=== PATIENT | male | born 1955 | race Caucasian/White ===

== ENCOUNTER 2020-04-09 12:20 | Outpatient (CLI) | payer MEDICARE, SELFPAY ==
--- NOTE | ~2020-04-09 | XR_ITS ---
XR shoulder LT min 2V DATE: 04/09/2020 12:49 INDICATION: Fall downstairs this morning. Unable to raise arm. TECHNIQUE: 4 views COMPARISON: 08/25/2004 left shoulder FINDINGS: There is prominent smooth chronic calcification at the region of the left rotator cuff sugg esting chronic calcific tendinitis. There is osteoarthritic spurring at the glenohumeral joint. No fracture, dislocation, periosteal reaction or bone destruction of the left shoulder is evident. IMPRESSION: No fracture or dislocation of left shoulder Prominent chronic calcification at the rotator cuff Reviewed, dictated and finalized at location A.
== END 2020-04-09 12:21 | disposition home or self-care (01) ==
PROVIDERS: PCP Family Medicine; Visit Provider Family Medicine
DX: M25.512 Pain in left shoulder (principal)
CPT/HCPCS: 73030

== ENCOUNTER → 2021-01-31 12:06 | Outpatient (CLI) | payer MEDICARE, SELFPAY ==
--- NOTE | ~2021-01-31 | XR_ITS ---
EXAMINATION: XR knee LT min 4V DATE: 01/31/2021 12:41 INDICATION: Left knee pain. TECHNIQUE: 4 views of left knee were obtained. COMPARISON: None. FINDINGS: There is varus angulation at the knee. No fracture. There is moderate osteoarthritis of med ial compartment and mild osteoarthritis of lateral and patellofemoral compartments. No knee joint eff usion. IMPRESSION: 1. Moderate left knee osteoarthritis. Reviewed, dictated and finalized at location A.
--- NOTE | ~2021-01-31 | XR_ITS ---
EXAMINATION: XR knee RT min 4V DATE: 01/31/2021 12:41 INDICATION: Right knee pain. TECHNIQUE: 4 views of right knee were obtained. COMPARISON: None. FINDINGS: There is varus angulation at the knee. No fracture. There is moderate osteoarthritis of med ial and patellofemoral compartments and mild osteoarthritis of lateral compartment. No knee joint eff usion. IMPRESSION: 1. Moderate right knee osteoarthritis. Reviewed, dictated and finalized at location A.
== END ==
PROVIDERS: Visit Provider Family Medicine
DX: M17.0 Bilateral primary osteoarthritis of knee (principal)
CPT/HCPCS: 73564

== ENCOUNTER → 2021-06-02 11:54 | Outpatient (CLI) | payer MEDICARE, SELFPAY ==
--- NOTE | ~2021-06-02 | CT_ITS ---
EXAMINATION: CT sinus wo con DATE: 06/02/2021 12:11 INDICATION: Chronic recurrent sinusitis TECHNIQUE: Computed tomography (CT) of the paranasal sinuses was performed without contrast. Iterativ e reconstruction technique was employed. Exam dose: 303.01 mGy-cm total exam DLP. COMPARISON: None FINDINGS: Right deviation of the nasal septum. The nasal turbinates are moderately prominent, relatively symmetric. There is a prominent periapical abscess at upper left molar #15 tooth, projecting into the lower left maxillary sinus. There is severe mucoperiosteal thickening nearly opacifying the left maxillary sinus. There is opacification of left maxillary ostium and left infundibulum. The right ostiomeatal unit is patent. Small mucus retention cyst or polyp of the anterior right maxillary sinus. A focal area of soft tissu e thickening is noted in each ethmoid area. Minimal development of the frontal sinuses. The sphenoid sinuses are unremarkable. Normal development and aeration of the mastoid air cells. Middle and inner ear apparatus appear shay l bilaterally. IMPRESSION: Rightward deviation of nasal septum Severe mucoperiosteal thickening nearly completely opacifying left maxillary sinus Opacification of left maxillary ostium and left infundibulum Large periapical abscess of left upper molar #15, projecting into the left maxillary sinus Minimal focal soft tissue thickening of the anterior right maxillary sinus There is a focal area of mild soft tissue thickening is identified in the ethmoid air cells Reviewed, dictated and finalized at Location A. Reviewed, dictated and finalized at location A. IMPRESSION: Rightward deviation of nasal septum Severe mucoperiosteal thickening nearly completely opacifying left maxillary si nus Opacification of left maxillary ostium and left infundibulum Large periapical abscess of left upper molar #15, projecting into the left maxi llary sinus Minimal focal soft tissue thickening of the anterior right maxillary sinus There is a focal area of mild soft tissue thickening is identified in the ethmo id air cells
== END ==
PROVIDERS: PCP Family Medicine; Visit Provider Family Medicine
DX: J32.9 Chronic sinusitis, unspecified (principal); J34.2 Deviated nasal septum; K04.7 Periapical abscess without sinus
CPT/HCPCS: 70486

== ENCOUNTER → 2022-04-04 15:19 | Outpatient (CLI) | payer MEDICARE, SELFPAY ==
--- NOTE | ~2022-04-04 | XR_ITS ---
EXAM: XR wrist LT min 3V HISTORY: Pain in left wrist . COMPARISON: Left hand 11/11/2014. FINDINGS: Normal mineralization. No fracture or dislocation. No lytic or blastic lesion. Severe narr owing sclerosis and osteophytosis at the trapeziometacarpal joint. No erosion or periosteal change. S oft tissues within normal limits. IMPRESSION: Severe left trapezium metacarpal joint osteoarthritis. Reviewed, dictated and finalized at location K.
--- NOTE | ~2022-04-04 | XR_ITS ---
EXAM: XR elbow RT min 3V HISTORY: Pain in right elbow . COMPARISON: None available. FINDINGS: Soft tissue calcification over the medial condyle, degenerative in appearance. Scattered m ild osteophytosis and enthesopathy. Subtle displacement of the anterior fat pad. IMPRESSION: Mild degenerative changes in the elbow. Possible small elbow joint effusion which may be related to degenerative changes. If there is a history of acute trauma consider occult radial head fr acture. Reviewed, dictated and finalized at location K. IMPRESSION: Mild degenerative changes in the elbow. Possible small elbow joint effusion which may be related to degenerative changes. If there is a history of acute trauma consider occult radial head fracture.
--- NOTE | ~2022-04-04 | XR_ITS ---
EXAM: [id number] HISTORY: Rib pain . COMPARISON: None available. FINDINGS: Moderate degenerative change in the right shoulder. Lumbar scoliosis no fracture. Aortic e ctasia. Visualized lung parenchyma is clear. IMPRESSION: No acute osseous abnormality detected in the right ribs. Reviewed, dictated and finalized at location K.
== END ==
PROVIDERS: PCP Family Medicine; Visit Provider Physician Assistant
DX: R07.81 Pleurodynia (principal); M19.032 Primary osteoarthritis, left wrist; M19.021 Primary osteoarthritis, right elbow
CPT/HCPCS: 71101; 73080; 73110

== ENCOUNTER 2022-06-29 10:43 | Outpatient (CLI) | payer MEDICARE, SELFPAY ==
--- NOTE | 2022-06-29 10:54 | ECG_ITS ---
Measurements Intervals [place] Rate: 61 P: 42 DE: 181 QRS: 14 QRSD: 99 T: 53 QT: 417 QTc: 420 Interpretive Statements SINUS RHYTHM NORMAL EKG NO PREVIOUS ECG AVAILABLE FOR COMPARISON Electronically Signed On 06-29-2022 18:30:08 CDT by Moraima Gao M.D.
== END 2022-06-29 10:44 | disposition home or self-care (01) ==
LOC: ANHSURGERY 10:47
PROVIDERS: PCP Family Medicine; Visit Provider Urology
DX: E78.00 Pure hypercholesterolemia, unspecified (principal); Z01.818 Encounter for other preprocedural examination
CPT/HCPCS: 93005

== ENCOUNTER 2022-07-04 01:35 | Day surgery (SDC) | payer MEDICARE, SELFPAY ==
[2022-06-29 09:31] VITALS: BMI 25.6
--- NOTE | 2022-06-29 09:41 | PC.NURSE ---
PRE-OP INSTRUCTIONS, PLEASE READ CAREFULLY Report to the Outpatient Waiting Room, entrance under the green pavilion located off [facility], at time _1000_ on date _07/04/22_. OR Time: _1200_. - You and your visitor will be asked a series of questions to screen for COVID 19 for your protection. - Only one visitor is allowed at this time. - The patient visitor is requested to leave or wait in car when not with patient. - A mask is required within the hospital. Patients may have clear liquids (water, carbonated beverages, clear teas, apple juice) until 3 hours prior to surgery (0900 AM) with a maximum of 20 ounces. - No food from midnight until time of surgery Take the following medications with a SIP of water the morning of surgery: _LEVOTHYROXINE__ Medications to discontinue per DR. WELSH - _PT STATES STOPPING DICLOFENAC 06/28/22_ Medications to discontinue per ANESTHESIA - ALL VITAMINS AND SUPPLEMENTS 3 DAYS PRIOR TO SURGERY, Date to take last dose 06/30/22_ Please no deodorant, or body powder the day of surgery. No jewelry (including any body piercings) or valuables the day of surgery, leave them at home. Please take a shower or bath the night before, or the morning of, surgery with an antibacterial soap. Wear comfortable, loose fitting clothing. - Jewelry must be removed prior to entering the operating room. Rings and piercings that are not removed may be cut off. - The hospital will not accept responsibility for valuables. - Please leave all valuables, including medications, at home the day of surgery. If you are going home after surgery, a licensed route driver must drive you home. - NO public transportation without another adult. - We recommend that an adult stay with you for 24 hours following discharge. - We also recommend that you do not drive, make important decision, drink alcoholic beverages, or take any drugs that were not prescribed by your health care provider for at least 24 hours after your discharge time. Follow any additional instructions given to you from your surgeon. If you or anyone in your household have experienced Covid symptoms in the past week, please notify your surgeon or the nurse liaison at the phone number below for possible testing. Telephone instructions given to ____PT and asked if any additional questions and then verbalized understanding. Patient advised to call surgeon office or pre surgery nurse liaison [phone] if any additional questions.
[2022-07-04] VITALS (8 sets, daily range): BP systolic 123–149; BP diastolic 74–94; PULSE 56–75; RESP 14–18; TEMP 36.1–36.8; O2SAT 100
--- NOTE | 2022-07-04 07:16 | P.PNAN_ITS ---
Anes - Initial Pre Proc Eval Procedure: Operation Date: 07/04/22 12:00 Proposed Procedures p Excision of Right Epididymal Cyst with Orchiopexy with Scrotal Approach - Avinash Keating MD Date/Time: 07/04/22 07:16 Surgeon: Avinash Keating MD Pre Op Diagnosis: Rt Epidiymal Patient Data Age: 67 Gender: M Height: 1.93 m Weight: 95.45 kg Allergies Allergy/AdvReac Type Severity Reaction Status Date / Time No Known Allergies Allergy Unverified 07/04/22 09:54 Home Medications Medication Instructions Recorded Confirmed Type Probiotic 1 cap QAM 06/29/22 07/04/22 History coenzyme Q10 100 mg capsule 200 mg PO QAM 06/29/22 07/04/22 History (CoQ-10) diclofenac sodium 75 mg 75 mg PO QAM 06/29/22 07/04/22 History tablet,delayed release docusate sodium 100 mg capsule 300 mg PO HS 06/29/22 07/04/22 History (Stool Softener) finasteride 5 mg tablet 5 mg QAM 06/29/22 07/04/22 History glucosamine sulfate dipotassium Cl 2 tablet PO QAM 06/29/22 07/04/22 History 500 mg-chondroitin 400 mg capsule (Glucosamine Sulfate 2 KCL-Chondroitin) krill oil 500 mg capsule 500 mg PO QAM 06/29/22 07/04/22 History levothyroxine 175 mcg tablet 175 mcg QAM 06/29/22 07/04/22 History lovastatin 20 mg tablet 20 mg QAM 06/29/22 07/04/22 History multivitamin 1 tablet PO QAM 06/29/22 07/04/22 History polyethylene glycol 3350 17 17 g PO QAM 06/29/22 07/04/22 History gram/dose oral powder (Miralax) Patient hx anesthesia problems: none Family hx anesthesia problems: none Results Review: All pre-operative results and documents have been reviewed as part of the pre- operative evaluation. [facility] Past Medical History Medical History (Updated 07/04/22 @ 07:17 by Navneet Woodward DO) Bladder cancer BPH (benign prostatic hyperplasia) Hyperlipidemia Hypothyroidism Surgical History Surgical History (Updated 07/04/22 @ 07:17 by Navneet Woodward DO) History of tonsillectomy Social History Social History Smoking status: Never smoker Second hand tobacco smoke exposure: No Alcohol intake: current Alcohol use details: STATES MAYBE 10 DRINKS/YEAR Substance use: never Substance use type: does not use Living arrangements: alone Spiritual care concerns: No Anes - Eval Final PreProcedure Day of Procedure 07/04/22 07:16 Patient weight: overweight Heart: regular rate and rhythm Lungs: clear to auscultation Airway: Mallampati scale class II Neurological: alert and oriented Last oral intake: >/= 8 hours ASA classification: II Emergent: no Anesthetic plan: proceed Anesthesia type and monitoring: general LMA and standard monitoring Results Review: All pre-operative results and documents have been reviewed as part of the pre- operative evaluation. Informed Consent: The patient's anesthetic plan and its attendant risks and benefits were discussed with the patient/family/POA. Questions were solicited and answers p rovided to the satisfaction of the patient/family/POA.
[2022-07-04] MEDS: LACTATED RINGERS 1,000 ML 30 ML IV CONT ×2 (10:06→13:39)
--- NOTE | 2022-07-04 11:38 | WPDHPUPDATE1 ---
History and Physical Update Update Date/Time: 07/04/22 11:38 History and Physical has been reviewed, including an updated exam of the patient. There are NO changes in the patient's condition. Risks, benefits, and alternatives have been discussed and questions answered. Patient agrees to proceed with procedure.
[2022-07-04] MEDS: ceFAZolin 2 GM/D5W 50 ML 2 GM/50 ML BAG IVPB (12:07)
[2022-07-04] MEDS: BUPIVACAINE HCL 0.25% PF 30 ML VIAL INFILTRATE (12:48)
--- NOTE | 2022-07-04 13:13 | W.PM.PROC2 ---
Procedure Note - Detailed Date of Procedure 07/04/22 Pre-op Diagnosis Rt Epidiymal cyst Post-op Diagnosis Same (Right hydrocele, right epididymal cyst/spermatocele) Procedure Performed Right hydrocelectomy, excision right epididymal cyst/spermatocele, right orchiopexy Surgeon Avinash Keating MD Anesthesia General Description of Procedure Patient is taken the operative suite correctly identified. Once anesthesia was obtained he was prepped and draped usual sterile fashion. A transverse incision was made the right hemiscrotum. This carried down to the tunica layers. The hydrocele and testicle was brought out to the operative field. The hydrocele was incised and drained of straw-colored fluid. The excess tissue was excised sent for analysis. Then had a spermatocele/epididymal cyst measuring approximately a 5 cm which was dissected down to its origin at the head of the epididymis. Hemostat was placed across it and it was excised and sent for review. Then ligated the opening using 3-0 Vicryl. There was good hemostasis at this time. The appendix testes was also excised and fulgurated. An orchiopexy was then performed using 3-0 Ethibond securing the testicle at 3 points. Quarter-inch Kierra drain was placed in the right hemiscrotum through a separate stab incision and secured. Tunica was closed using 3-0 chromic in a running fashion. Bupivacaine was used to anesthetize the incision. Incision was closed using 3-0 chromic in running fashion. Patient was taken recovery stable condition. Estimated Blood Loss 10 Drains Yes Packing No Pathology Yes Complications No immediate complications Condition Stable Disposition PACU
[2022-07-04] MEDS: fentaNYL CITRATE INJ (*CRX) 100 MCG/2 ML VIAL 25 MCG IV PUSH (13:46)
[2022-07-04] MEDS: oxyCODONE HCL (*CRX) 5 MG TAB IR PO (14:20)
== END 2022-07-04 15:04 | disposition home or self-care (01) ==
PROVIDERS: PCP Family Medicine; Visit Provider Urology
PROC: (CPT 55040; principal; 2022-07-04 12:00)
DX: N43.3 Hydrocele, unspecified (principal); N43.41 Spermatocele of epididymis, single; E78.5 Hyperlipidemia, unspecified; E03.9 Hypothyroidism, unspecified; N40.0 Benign prostatic hyperplasia without lower urinary tract symptoms; Z85.51 Personal history of malignant neoplasm of bladder
CPT/HCPCS: 55040; 54640; 88302; 88304; 93005; A9270; J0690; J1100; J2405; J2704; J3010; J7120

== ENCOUNTER 2022-08-02 11:27 | Emergency (ER) | payer MEDICARE, SELFPAY ==
--- NOTE | ~2022-08-02 | XR_ITS ---
EXAMINATION: XR finger 2nd LT min 2V INDICATION: Left second finger pain and laceration TECHNIQUE: Four views of the left second finger are obtained COMPARISON: 11/11/2014 FINDINGS: Bone alignment is normal. There is no fracture. There is mild osteoarthritis of the interph alangeal joints. Soft tissue swelling is noted. IMPRESSION: 1. No acute osseous abnormality. Reviewed, dictated and finalized at location B.
[2022-08-02 11:34] VITALS: BP 139/81; PULSE 70; RESP 16; TEMP 36.6; O2SAT 99
--- NOTE | 2022-08-02 11:52 | ED.GENADULT ---
HPI - General Adult General Chief complaint: Wound/Laceration Stated complaint: Cut Finger Lt Hand History of Present Illness HPI narrative: Mr. De La Cruz is a pleasant 67 y/o male. PMHx Hypothyroid, Dyslipidemia, BHP, Bladder Carcinoma. Presents to [facility] today w/acute complaints of LT finger Pointer Finger laceration. Client tells me that he was trimming tree limbs with a chain saw, RT hand dominant, lowered the chain saw and accidentally 'nipped' LT finger. -Incident had occurred immediately [employer]. -Bleeding is currently controlled. -Not on any active anticoagulants. -Non-Diabetic. -No bony pain or trauma. -Tetanus is reported as UTD 2018 according to client. He is without additional acute c/o upon PE. Related Data Home Medications Medication Instructions Recorded Confirmed coenzyme Q10 100 mg capsule 200 mg PO QA 06/29/22 08/02/22 (CoQ-10) diclofenac sodium 75 mg 75 mg PO QA 06/29/22 08/02/22 tablet,delayed release finasteride 5 mg tablet 5 mg QA 06/29/22 08/02/22 glucosamine sulfate dipotassium Cl 2 tablet PO QAM 06/29/22 08/02/22 500 mg-chondroitin 400 mg capsule (Glucosamine Sulfate 2 KCL-Chondroitin) krill oil 500 mg capsule 500 mg PO QAM 06/29/22 08/02/22 levothyroxine 175 mcg tablet 175 mcg QAM 06/29/22 08/02/22 lovastatin 20 mg tablet 20 mg QAM 06/29/22 08/02/22 multivitamin 1 tablet PO QAM 06/29/22 08/02/22 Allergies Allergy/AdvReac Type Severity Reaction Status Date / Time No Known Allergies Allergy Verified 08/02/22 11:31 Review of Systems Review of Systems: CONSTITUTIONAL: Denies fever, chills, sweats. EYES: Denies visual changes, redness, discharge. ENT: Denies rhinorrhea, congestion, sore throat, otalgia. CARDIOVASCULAR: Denies chest pain, palpitations, edema. RESPIRATORY: Denies dyspnea, wheezing, cough GASTROINTESTINAL: Denies abdominal pain, nausea, vomiting, diarrhea. GENITOURINARY: Denies dysuria, hematuria, abnormal discharge SKIN: LT pointer finger laceration. MUSCULOSKELETAL: Denies acute back pain, joint pain, or myalgia. NEUROLOGIC: Denies numbness, or focal weakness. PSYCHIATRIC: Denies anxiety or depression. [facility] Past Medical History Medical History Bladder cancer BPH (benign prostatic hyperplasia) Hyperlipidemia Hypothyroidism Surgical History Surgical History History of tonsillectomy Social History Social History Smoking status: Never smoker Second hand tobacco smoke exposure: No Alcohol intake: current Alcohol use details: STATES MAYBE 10 DRINKS/YEAR Substance use: never Substance use type: does not use Spiritual care concerns: No Exam Narrative: GENERAL: This is a well-nourished, well-developed adult, in no apparent distress. HEAD: normocephalic, atraumatic. EYES: Sclera clear/white. EARS: External ears normal. NOSE: External nose normal. THROAT: Mucous membranes moist. NECK: Neck supple, non-tender. CARDIOVASCULAR: Regular rate and rhythm. Pulses and cap refill brisk to LUE. SPO2 99 % on affected digit. RESPIRATORY: Clear to auscultation. GASTROINTESTINAL: Abdomen soft, non-tender. SKIN: With 2.5 cm linear laceration overlying proximal LT pointer. No obvious FB. Bleeding is controlled. Client exhibits full flexion and extension of digit, w/o difficulty. No bony tenderness or laxity. No open Fxs or deformity. NEURO: Alert, active, and age appropriate. Good sensation and discrimination LUE, all sites. EXTREMITIES: Mild point soft tissue tenderness and laceration LT pointer finger, See also SKIN documentation above. Remainder of musculoskeletal exam is negative. Course Course Level of Care: Express Care Visit Vital Signs Vital signs: Vital Signs Temperature 36.6 C 08/02/22 11:34 Pulse Rate 70 08/02/22 11:34 Respiratory R
== END 2022-08-02 12:35 | disposition home or self-care (01) ==
PROVIDERS: Emergency Provider Nurse Practitioner Adult Health; PCP Family Medicine
DX: S61.211A Laceration without foreign body of left index finger without damage to nail, initial encounter (principal); W29.3XXA Contact with powered garden and outdoor hand tools and machinery, initial encounter; N40.0 Benign prostatic hyperplasia without lower urinary tract symptoms; E78.5 Hyperlipidemia, unspecified; E03.9 Hypothyroidism, unspecified; Z85.51 Personal history of malignant neoplasm of bladder
CPT/HCPCS: 12001; 73140; 99213; G0463

== ENCOUNTER 2023-09-05 08:13 | Outpatient (CLI) | payer MEDICARE, SELFPAY ==
--- NOTE | 2023-09-05 08:26 | ECG_ITS ---
Measurements Intervals [place] Rate: 65 P: 37 LA: 210 QRS: -3 QRSD: 95 T: 36 QT: 408 QTc: 426 Interpretive Statements SINUS RHYTHM WITH FIRST DEGREE AV BLOCK BASELINE ARTIFACT BORDERLINE ECG COMPARED TO ECG 06/29/2022 11:03:11 FIRST DEGREE AV BLOCK NOW PRESENT Electronically Signed On 09-05-2023 18:26:21 CDT by Abhishek Fatima M.D.
== END 2023-09-05 08:14 | disposition home or self-care (01) ==
LOC: ANHSURGERY 08:18
PROVIDERS: PCP Family Medicine; Visit Provider Urology
DX: C67.9 Malignant neoplasm of bladder, unspecified (principal); E78.00 Pure hypercholesterolemia, unspecified; Z01.818 Encounter for other preprocedural examination
CPT/HCPCS: 87086; 93005

== ENCOUNTER 2023-09-11 01:17 | Day surgery (SDC) | payer MEDICARE, SELFPAY ==
[2023-08-29 09:15] VITALS: BMI 28.0
--- NOTE | 2023-08-29 09:24 | PC.NURSE ---
PRE-OP INSTRUCTIONS, PLEASE READ CAREFULLY Report to the Outpatient Waiting Room, entrance under the green pavilion located off [facility], at time _0600_ on date _09/11/23_. Planned Procedure Time: _0730_. Time changes happen often and if your time is changed the preop area will call you the afternoon before. - You and your visitor will be asked to self-screen and do not enter if you have any COVID symptoms. - A mask is optional within the hospital at this time. Patients may have clear liquids (water, carbonated beverages, clear teas, apple juice) until 3 hours prior to surgery (0430 AM) with a maximum of 20 ounces. - No food from midnight until time of surgery Take the following medications with a SIP of water the morning of surgery: _LEVOTHYROXINE_ DO NOT STOP ANY OF YOUR OTHER PRESCRIPTION MEDICATIONS PRIOR TO SURGERY ?EXCEPT THE FOLLOWING Medications to discontinue per DR. WELSH - _PT STATES STOPPING DICLOFENAC 09/03/23_ Medications to discontinue per ANESTHESIA -_MULTIVITAMIN & SUPPLEMENTS 3 DAYS PRIOR TO SURGERY, Date to take last dose 09/07/23_ Please no make-up, nail telugu, hairspray, perfume, deodorant, or body powder the day of surgery. No jewelry (including any body piercings) or valuables the day of surgery, leave them at home. Please take a shower or bath the night before, or the morning of, surgery with an antibacterial soap. Wear comfortable, loose fitting clothing. - Jewelry must be removed prior to entering the operating room. Rings and piercings that are not removed may be cut off. - The hospital will not accept responsibility for valuables. - Please leave all valuables, including medications, at home the day of surgery. If you are going home after surgery, a licensed public transit trolley driver must drive you home. - NO public transportation without another adult if you receive anesthesia. - We recommend that an adult stay with you for 24 hours following discharge. - We also recommend that you do not drive, make important decision, drink alcoholic beverages, or take any drugs that were not prescribed by your health care provider for at least 24 hours after your discharge time. Follow any additional instructions given to you from your surgeon. If you or anyone in your household have experienced Covid symptoms in the past week, please notify your surgeon or the nurse liaison at the phone number below for possible testing. Telephone instructions given to _PATIENT_and asked if any additional questions and then verbalized understanding. Patient advised to call surgeon office or pre surgery nurse liaison [phone] if any additional questions.
--- NOTE | 2023-09-10 13:37 | WPDANESEPPF ---
Anes - Initial Pre Proc Eval Procedure: Operation Date: 09/11/23 13:00 Proposed Procedures p Cystoscopy, Bladder Biopsy with Fulguration - Avinash Keating MD Date/Time: 09/10/23 13:37 Surgeon: Avinash Keating MD Pre Op Diagnosis: bladder cancer Patient Data Age: 68 Gender: M Height: 1.93 m Weight: 104.54 kg Allergies Allergy/AdvReac Type Severity Reaction Status Date / Time No Known Allergies Allergy Verified 08/29/23 09:13 Home Medications Medication Instructions Recorded Confirmed Type coenzyme Q10 100 mg capsule 200 mg PO QAM 06/29/22 08/29/23 History (CoQ-10) diclofenac sodium 75 mg 75 mg PO QAM 06/29/22 08/29/23 History tablet,delayed release glucosamine sulfate dipotassium Cl 2 tablet PO QAM 06/29/22 08/29/23 History 500 mg-chondroitin 400 mg capsule (Glucosamine Sulfate 2 KCL-Chondroitin) levothyroxine 175 mcg tablet 175 mcg QAM 06/29/22 08/29/23 History lovastatin 20 mg tablet 20 mg QAM 06/29/22 08/29/23 History multivitamin 1 tablet PO QAM 06/29/22 08/29/23 History dutasteride 0.5 mg capsule 0.5 mg PO DAILY 02/02/23 08/29/23 History krill oil 500 mg capsule 400 mg PO QAM 04/18/23 08/29/23 History Patient hx anesthesia problems: none Family hx anesthesia problems: none Results Review: All pre-operative results and documents have been reviewed as part of the pre-operative evaluation. [facility] Past Medical History Medical History (Updated 05/03/23 @ 15:48 by Ortiz Iglesias MD) Bladder cancer BPH (benign prostatic hyperplasia) Hyperlipidemia Hypothyroidism Other constipation Other hereditary and idiopathic neuropathies Other intervertebral disc degeneration, lumbar region Post-void dribbling Thoracic aortic ectasia Surgical History Surgical History History of tonsillectomy Social History Social History Smoking status: Never smoker Second hand tobacco smoke exposure: No Alcohol intake: current Alcohol use details: 1/MONTH Substance use: never Substance use type: does not use Lack of Transportation: No Lack of Food: Never True Current Housing: I Have Housing Concerned About Future Housing: No Difficulty Paying Gas/Electric Bills: No Difficulty Paying for Meds: No Currently Unemployed: No Difficulty w/ Childcare or Family Care: No Living arrangements: alone Occupation/Education: retired Gender identity (if verbalized by the patient): Male Sexual Orientation (if Verbalized by the Patient): Straight or Heterosexual Spiritual care concerns: No Anes - Eval Final PreProcedure Day of Procedure 09/10/23 13:37 Patient weight: overweight Heart: regular rate and rhythm Lungs: clear to auscultation Airway: Mallampati scale class II Neurological: alert and oriented Last oral intake: >/= 8 hours ASA classification: III Emergent: no Anesthetic plan: proceed Anesthesia type and monitoring: general LMA and standard monitoring Results Review: All pre-operative results and documents have been reviewed as part of the pre-operative evaluation. Informed Consent: The patient's anesthetic plan and its attendant risks and benefits were discussed with the patient/family/POA. Questions were solicited and answers provided to the satisfaction of the patient/family/POA.
[2023-09-11 06:30] VITALS: BP 131/77; PULSE 65; RESP 14; TEMP 36.6; O2SAT 97
[2023-09-11] MEDS: LACTATED RINGERS 1,000 ML 30 ML IV CONT (06:45)
--- NOTE | 2023-09-11 07:21 | WPDHPUPDATE1 ---
History and Physical Update Update Date/Time: 09/11/23 07:21 History and Physical has been reviewed, including an updated exam of the patient. There are NO changes in the patient's condition. Risks, benefits, and alternatives have been discussed and questions answered. Patient agrees to proceed with procedure. Proceed with cystoscopy and bladder biopsy
[2023-09-11] MEDS: ceFAZolin 2 GM/D5W 50 ML 2 GM/50 ML BAG IVPB (07:30)
[2023-09-11] MEDS: LIDOCAINE HCL 2% GEL UROJET 10 ML PKG MUCOUS MEM (07:48)
--- NOTE | 2023-09-11 07:53 | W.PM.PROC2 ---
Procedure Note - Detailed Date of Procedure 09/11/23 Pre-op Diagnosis bladder cancer Post-op Diagnosis Same Procedure Performed CYSTOSCOPY, BLADDER BIOPSY WITH FULGURATION Surgeon Avinash Keating MD Anesthesia General Description of Procedure PATIENT WAS TAKEN TO THE OPERATIVE SUITE CORRECTLY IDENTIFIED. ONCE ANESTHESIA WAS OBTAINED HE WAS PLACED IN DORSAL LITHOTOMY POSITION AND PREPPED AND DRAPED USUAL STERILE FASHION. TWENTY-TWO MALTESE SCOPE WAS INSERTED THE BLADDER. HE HAS A SMALL LITTLE PAPILLARY LESION MEASURING A COUPLE MM JUST SUPERIOR LATERAL TO THE LEFT URETERAL ORIFICE. USING A COLD CUP BIOPSY WE BIOPSIED THIS AREA AND FULGURATED WITH A BUGBEE. THERE WAS GOOD HEMOSTASIS. BLADDER WAS DRAINED. 2% VISCOUS LIDOCAINE WAS INSERTED INTO THE URETHRA. PATIENT IS TAKEN RECOVERY STABLE CONDITION. HE IS TO CALL FOR PATH RESULTS IN 1 WEEK. THIS COMPLETES DICTATION. PLEASE SEND A COPY OF OP NOTE TO MY OFFICE Estimated Blood Loss 0 Drains No Packing No Pathology Yes Complications No immediate complications Condition Stable Disposition PACU
[2023-09-11 07:58] VITALS: BP 104/72; PULSE 63; RESP 10; TEMP 36.4; O2SAT 100
[2023-09-11 08:10] VITALS: BP 122/81; PULSE 64; RESP 16; O2SAT 100
[2023-09-11 08:25] VITALS: BP 125/85; PULSE 74; RESP 16; O2SAT 100
[2023-09-11 08:32] VITALS: BP 145/90; PULSE 61; RESP 16; O2SAT 100
[2023-09-11 09:00] VITALS: BP 129/75; PULSE 69; RESP 16
== END 2023-09-11 09:24 | disposition home or self-care (01) ==
PROVIDERS: PCP Family Medicine; Visit Provider Urology
PROC: 0TBB8ZX Excision of Bladder, Via Natural or Artificial Opening Endoscopic, Diagnostic (ICD-10-PCS; CPT 52204; principal; 2023-09-11 07:30)
DX: N32.89 Other specified disorders of bladder (principal); E78.5 Hyperlipidemia, unspecified; E03.9 Hypothyroidism, unspecified; N40.0 Benign prostatic hyperplasia without lower urinary tract symptoms; I11.9 Hypertensive heart disease without heart failure; Z85.51 Personal history of malignant neoplasm of bladder
CPT/HCPCS: 52204; 87086; 88305; 93005; J0690; J1100; J2405; J2704; J3010; J7120

== ENCOUNTER → 2023-11-16 16:13 | Outpatient (CLI) | payer MEDICARE, SELFPAY ==
--- NOTE | ~2023-11-16 | XR_ITS ---
XR hip LT min 2V 11/16/2023 16:33 INDICATION: Left hip pain PROCEDURE: 2 views left hip COMPARISON: No prior studies for comparison. FINDINGS: Fracture, dislocation or subluxation is not identified. There is moderate osteoarthritis of the left hip. The soft tissues appear within normal limits. No foreign bodies are identified. IMPRESSION: 1: Moderate osteoarthritis of the left hip. Reviewed, dictated and finalized at location A. MENTATION CONSULTANT
== END ==
PROVIDERS: PCP Family Medicine; Visit Provider Family Medicine
DX: M16.12 Unilateral primary osteoarthritis, left hip (principal)
CPT/HCPCS: 73502

== ENCOUNTER 2025-03-18 12:51 | Outpatient (CLI) | payer MEDICARE, SELFPAY ==
--- NOTE | ~2025-03-18 | XR_ITS ---
XR knee LT min 4V Ordering provider: Ortiz Iglesias MD History: . M25.561 - Pain in right knee . Comparison: None. FINDINGS: BONES: No acute fracture or dislocation. JOINT SPACES: Severe narrowing of the medial compartment. Marginal osteophytes in the patella. SOFT TISSUES: Normal. IMPRESSION: No acute osseous abnormality left knee. Severe osteoarthritic changes. Reviewed, dictated and finalized at location A.
--- NOTE | ~2025-03-18 | XR_ITS ---
XR knee RT min 4V Ordering provider: Ortiz Iglesias MD History: . PAIN IN LEFT KNEE . Comparison: None. FINDINGS: BONES: No acute fracture or dislocation. JOINT SPACES: Severe narrowing of the medial compartment. Marginal osteophytes seen in the patella. L ucency seen in the superior patella which is most likely due to osteophyte formation. Fracture is les s likely. Clinical correlation for tenderness advised. SOFT TISSUES: Normal. IMPRESSION: No acute osseous abnormality right knee. Severe osteoarthritic changes. Reviewed, dictated and finalized at location A.
== END 2025-03-18 12:52 | disposition home or self-care (01) ==
LOC: MICIMG 12:52
PROVIDERS: PCP Family Medicine; Visit Provider Family Medicine
DX: M17.0 Bilateral primary osteoarthritis of knee (principal)
CPT/HCPCS: 73564